=== PATIENT | male | born 1975 | race Two or more races ===

== ENCOUNTER 2021-04-22 12:12 | Emergency (ER) | payer OTHER ==
[~2021-04-22] VITALS: Ht 170.2 cm; Wt 77.1 kg
[2021-04-22] MEDS ORDERED: PANTOPRAZOLE 40mg/50ML NS AE 50 ML IV ONE (12:45)
[2021-04-22] MEDS ORDERED: ONDANSETRON HCL 4 MG/2 ML VIAL IV ONE (12:45)
[2021-04-22] MEDS ORDERED: PANTOPRAZOLE 80 MG in SODIUM CHL 0.9% 100 ML IV ONE (12:45)
[2021-04-22] MEDS ORDERED: FAMOTIDINE (10MG/ML) 2ML VL IV ONE (12:45)
[2021-04-22] MEDS ORDERED: ALUM & MAG HYDROX-SIMETH LIQ(MAALOX) 30 ML PO ONE (12:45)
[2021-04-22 14:22] LABS: Basophils # (auto) 0 10 ^3/uL (0-0.2); Eosinophils # (auto) 0 10 ^3/uL (0-0.8); Hemoglobin 17.7 g/dL (13.5-17.5); Lymphocytes # (auto) 1.1 10 ^3/uL (0.4-5.4); Monocytes # (auto) 1.3 10 ^3/uL (0-1.3)
[2021-04-22 14:25] LABS: Basophils % (auto) 0.1 % (0.0-2.0); Hematocrit 50.5 % (41.0-53.0); Lymphocytes % (auto) 11.6 % (10.0-50.0); Mean Corpuscular Hemoglobin 31.2 pg (28.0-32.0); Mean Corpuscular Volume 89.3 fL (80.0-100.0); Monocytes % (auto) 13.7 % (0.0-12.0); Neutrophils % (auto) 74.6 % (37.0-80.0); Nucleated Red Blood Cells % 0.1 %; Red Blood Cells 5.66 10^6/uL (4.5-5.90); Red Cell Distribution Width 14.2 % (11.8-14.3); White Blood Cell 9.4 10^3/uL (4.4-10.8)
[2021-04-22 14:35] LABS: Albumin 4.6 g/dL (3.4-5.0); Calcium 9.7 mg/dL (8.5-10.1); Potassium 3.9 mmol/L (3.5-5.1)
[2021-04-22 14:37] LABS: Lactic Acid w/Reflex 2.2 mmol/L (0.4-2.0)
[2021-04-22 14:41] LABS: BUN/Creatinine Ratio 20.8; Bilirubin, Total 1.4 mg/dL (0.2-1.0)
[2021-04-22 14:55] LABS: INR 1.05 (0.9-1.15); Partial Thromboplastin Time 26.5 sec (23.6-33.0)
[2021-04-22] MEDS ORDERED: SODIUM CHLORIDE 0.9% 1,000 ML IV ONE (16:15)
[2021-04-22 23:52] VITALS: BP 154/95
== END 2021-04-22 22:44 | disposition short-term general hospital (02) ==
LOC: EDBD 12:12 → ER 12:12
DX: N17.9 Acute kidney failure, unspecified (principal); E86.0 Dehydration; K92.1 Melena; R74.01 Elevation of levels of liver transaminase levels; I45.81 Long QT syndrome
CPT/HCPCS: 36415; 71045; 76705; 80053; 83605; 84484; 85025; 85384; 85610; 85730; 86850; 86900; 86901; 93005; 96361; 96365; 96375; 99285; C9113; J2405; J3490; J7030

== ENCOUNTER 2022-05-07 09:52 | Emergency (ER) | payer OTHER ==
[~2022-05-07] VITALS: Ht 182.9 cm; Wt 86.3 kg
== END 2022-05-07 10:05 ==
LOC: EDBD 09:52 → EDSEX 09:52 → ER 09:52 → EDUNIT# 09:52 → ER 10:05
DX: I46.9 Cardiac arrest, cause unspecified (principal); S11.93XA Puncture wound without foreign body of unspecified part of neck, initial encounter; Y93.89 Activity, other specified; Y92.89 Other specified places as the place of occurrence of the external cause; Y99.8 Other external cause status
CPT/HCPCS: 36556; 92950